=== PATIENT | female | born 1970 | race Caucasian/White ===

== ENCOUNTER 2017-08-13 23:39 | Emergency (ER) | payer OTHER ==
[~2017-08-13] VITALS: Ht 165.1 cm; Wt 56.7 kg
[~2017-08-13 23:39] MED LIST: BUSP10 PO; CYCL10 PO; DICL25ER PO; FLUO10 PO; GABA600 PO; HYDROCORTISON28.4 GM; Naprosyn500 MG PO; Norco 7.5-3251 EACH PO; QUET100 PO; QUET300 PO; SOMA350 MG PO; TRAM50 PO; Ultram50 MG PO
[2017-08-14] MEDS ORDERED: CIPHYDOTSU BOTHEARS (00:03)
[2017-08-14] MEDS ORDERED: Neurontin 300300 MG PO (00:03)
[2017-08-14] MEDS ORDERED: Bactrim 400-801 EACH PO (00:03)
== END 2017-08-14 00:22 | disposition home or self-care (01) ==
LOC: ER 23:39
DX: H60.11 Cellulitis of right external ear (principal); F17.200 Nicotine dependence, unspecified, uncomplicated
CPT/HCPCS: 99283

== ENCOUNTER 2018-01-09 16:00 | Outpatient (CLI) | payer OTHER ==
[~2018-01-09 16:00] MED LIST changes: +Bactrim 400-801 EACH PO; +CIPHYDOTSU BOTHEARS; +Neurontin 300300 MG PO
[2018-01-09 17:11] LABS: U Amphetamine Screen Not Detected; U Barbituate Screen Not Detected; U Benzodiazapine Screen Not Detected; U Buprenorphine Screen Not Detected; U Cannabinoids Screen DETECTED; U Cocaine Screen Not Detected; U Methadone Screen Not Detected; U Methamphetamine Screen Not Detected; U Opiates Screen Not Detected; U Oxycodone Screen Not Detected; U Phencyclidine Screen Not Detected; U Propoxyphene Screen Not Detected
== END 2018-01-09 23:59 | disposition home or self-care (01) ==
LOC: LAB SHORT 16:00 → LAB 16:00 → LAB SHORT 23:59
PROVIDERS: Psychiatry & Neurology Psychiatry
DX: Z79.899 Other long term (current) drug therapy (principal)

== ENCOUNTER → 2018-11-19 | Outpatient (CLI) | payer OTHER ==
[~2018-11-19] MED LIST changes: +ALBU90OI INH; +AMPDEX15CR PO; +Advil Migraine200 MG PO; +Aspirin EC81 MG PO; +BIOTENE1000 ML SS; +CELE100 PO; +Percocet 5-3251 EACH PO; +QUETIAPINE FUM400 MG PO
[2018-11-19 11:33] LABS: U Amphetamine Screen Not Detected; U Barbituate Screen Not Detected; U Benzodiazapine Screen DETECTED; U Buprenorphine Screen Not Detected; U Cannabinoids Screen DETECTED; U Cocaine Screen Not Detected; U Methadone Screen Not Detected; U Methamphetamine Screen Not Detected; U Opiates Screen Not Detected; U Oxycodone Screen Not Detected; U Phencyclidine Screen Not Detected; U Propoxyphene Screen Not Detected
[2018-11-23 07:08] LABS: TRICYCLIC ANTIDEP Negative ng/mL (Cutoff=100)
== END | disposition home or self-care (01) ==
LOC: LAB SHORT 11:09 → LAB 11:09
PROVIDERS: Psychiatry & Neurology Psychiatry
DX: Z51.81 Encounter for therapeutic drug level monitoring (principal); Z79.899 Other long term (current) drug therapy
CPT/HCPCS: 80369; G0480; G0481

== ENCOUNTER 2018-11-29 07:51 | Day surgery (SDC) | payer OTHER ==
[~2018-11-29] VITALS: Ht 162.6 cm; Wt 65.3 kg
[~2018-11-29 07:51] MED LIST changes: -Aspirin EC81 MG PO; -CELE100 PO; -Percocet 5-3251 EACH PO; -QUETIAPINE FUM400 MG PO
--- NOTE | 2018-11-29 08:36 | NUR ---
Ambulatory in Day Surgery History, Chart, Medications and Allergies reviewed before start of procedure.Patient confirms NPO status and agrees with scheduled surgery. Patient reports completing Chlorhexadine shower X2 prior to admission to hospital.Surgical site prepped with 2% Chlorhexidine cloth wipe.
--- NOTE | 2018-11-29 13:09 | NUR ---
PT ARRIVED TO THE ROOM ALERT AND ORIENTED. RATES PAIN AT 9/10. WILL CONTINUE TO MONITOR.
--- NOTE | 2018-11-29 18:07 | NUR ---
PT BECAME NAUSEATED AND VOMITED AFTER EATING LUNCH. PT WAS PROVIDED WITH DINNER TRAY AND EDUCATED TO EAT SLOWLY AND ALLOW HER STOMACH TO ADJUST TO HAVING FOOD POST-OP. PT REPORTED SHE UNDERSTOOD, AND SHE WOULD EAT MORE SLOWLY.
--- NOTE | 2018-11-29 18:08 | NUR ---
SHIFT SUMMARY PAIN HAS BEEN MANAGED WITH PO PAIN MEDICATION POST-OP. PT HAS ALSO BEEN ENCOURAGED TO USE DISTRACTION TO HELP MANAGE PAIN; SHE HAS RESPONDED WELL. SHE WAS ALSO EDUCATED TO EXPECT PAIN. THIS RN WORKED WITH PT TO SET A PAIN MANAGEMENT GOAL OF 7/10, SINCE THIS IS THE LEVEL OF COMFORT THE PT ACHIEVES AT HOME. PT EDUCATED THAT PAIN IS A REALISTIC EXPECTATION AFTER SURGERY. PT RESPONDED WELL TO EDUCATION. PT VOMITED X1 AFTER EATING LUNCH, PT DENIED NAUSEA AFTER VOMITING. PT WORKED WITH THERAPY TODAY AND WAS A 1 PERSON ASSIST. VSS. WILL MONITOR UNTIL REPORT TO ONCOMING RN.
[2018-11-29] MEDS ORDERED: QUETIAPINE FUM400 MG PO (21:12)
[2018-11-30 04:31] LABS: BASOPHILS ABSOLUTE AUTO 0.02 K/mm3 (0.00-0.23); BASOPHILS PERCENT AUTO 0 % (0-2); EOSINOPHILS ABSOLUTE AUTO 0.05 K/mm3 (0.00-0.68); EOSINOPHILS PERCENT AUTO 0 % (0-6); Hematocrit 34.2 % (33.0-51.0); Hemoglobin 11.3 g/dL (11.5-16.0); IMMATURE GRAN ABSOLUTE AUTO 0.05 K/mm3 (0.00-0.10); IMMATURE GRAN PERCENT AUTO 0 % (0-1); LYMPHOCYTES ABSOLUTE AUTO 3.03 K/mm3 (0.84-5.20); LYMPHOCYTES PERCENT AUTO 19 % (21-46); MONOCYTES PERCENT AUTO 11 % (4-13); Mean Corpuscular HGB 32.1 pg (26.0-34.0); Mean Corpuscular Volume 97 fL (80-100); Mean Platelet Volume 9.6 fL (9.1-12.4); NEUTROPHILS ABSOLUTE AUTO 10.82 K/mm3 (1.96-9.15); NEUTROPHILS PERCENT AUTO 69 % (41-73); Platelet Count 257 K/mm3 (150-400); RDW Coefficient Variation 13.2 % (11.7-14.2); RDW Standard Deviation 46.9 fL (35.1-46.3); Red Blood Cell Count 3.52 M/mm3 (3.80-5.20); White Blood Cell Count 15.67 K/mm3 (4.00-11.30)
[2018-11-30 04:52] LABS: Anion Gap 7 mmol/L (6-16); Blood Urea Nitrogen 15 mg/dL (8-24); Bun/Creatinine Ratio 21.5 (12.0-20.0); CO2, Blood 29 mmol/L (21-32); Calcium, Blood 8.5 mg/dL (8.5-10.1); Chloride, Blood 104 mmol/L (98-108); Glomerular Filtration Rate >60 (60-); Glucose, Blood 122 mg/dL (70-99); Magnesium, Blood 1.9 mg/dL (1.6-2.4); Sodium, Blood 140 mmol/L (136-145)
--- NOTE | 2018-11-30 06:33 | NUR ---
SHIFT SUMMARY HAS HAD A GOOD NIGHT, RESTED WELL WHILE LYING IN SEMI FOWLERS WITH EYES CLOSED. PAIN MANAGED PER EMAR. DENIES FURTHER NEEDS OR WANTS AT THIS TIME. SAFETY MEASURES IN PLACE. HAND OFF TO BE GIVEN TO ONCOMING SHIFT USING SBAR.
[2018-11-30] MEDS ORDERED: Aspirin EC81 MG PO (11:33)
[2018-11-30] MEDS ORDERED: Percocet 5-3251 EACH PO (11:34)
[2018-11-30] MEDS ORDERED: CELE100 PO (11:35)
--- NOTE | 2018-11-30 12:14 | NUR ---
1155 DISCHARGED TO HOME
== END 2018-11-30 12:02 | disposition home or self-care (01) ==
LOC: ORSCMMR 07:51 → SURS 12:48 → ORSCMMR 13:00 → ORD 13:00 → ORSCMMR 11-30 12:02
PROVIDERS: Orthopaedic Surgery
PROC: 0SRD06A Replacement of Left Knee Joint with Oxidized Zirconium on Polyethylene Synthetic Substitute, Uncemented, Open Approach (ICD-10-PCS; principal; 2018-11-29 10:30)
DX: M17.12 Unilateral primary osteoarthritis, left knee (principal); F30.9 Manic episode, unspecified; F41.9 Anxiety disorder, unspecified; Z79.899 Other long term (current) drug therapy; Z87.891 Personal history of nicotine dependence
CPT/HCPCS: 36415; 73560-RT; 80048; 83735; 85025; 86850; 86900; 86901; 88300; 94640; 94760; 97110; 97116; 97162; 97530; C1776; J0171; J0690; J0735; J1885; J2250; J2405; J2795; J3010; J7120

== ENCOUNTER → 2019-04-01 | Outpatient (CLI) | payer OTHER ==
[~2019-04-01] MED LIST changes: +Aspirin EC81 MG PO; +CELE100 PO; +Percocet 5-3251 EACH PO; +QUETIAPINE FUM400 MG PO
[2019-04-01 19:29] LABS: U Amphetamine Screen DETECTED; U Barbituate Screen Not Detected; U Benzodiazapine Screen Not Detected; U Cannabinoids Screen DETECTED; U Cocaine Screen Not Detected; U Methadone Screen Not Detected; U Methamphetamine Screen Not Detected; U Opiates Screen Not Detected; U Phencyclidine Screen Not Detected
[2019-04-01 19:30] LABS: U Buprenorphine Screen Not Detected; U Oxycodone Screen Not Detected; U Propoxyphene Screen Not Detected
== END | disposition home or self-care (01) ==
LOC: LAB SHORT 14:00 → LAB 14:00
PROVIDERS: Registered Nurse Psychiatric/Mental Health
DX: Z51.81 Encounter for therapeutic drug level monitoring (principal); Z79.899 Other long term (current) drug therapy

== ENCOUNTER 2019-08-01 09:26 | Inpatient (IN) | payer OTHER ==
[~2019-08-01] VITALS: Ht 165.1 cm; Wt 67.7 kg
[~2019-08-01 09:26] MED LIST changes: -AMPDEX15CR PO; +Amphetamine Sal15 MG PO; -BUSP10 PO; +Buspirone HCl30 MG PO; -FLUO10 PO; +GABA400 PO; -GABA600 PO; +Prozac20 MG PO
[2019-08-01 10:10] LABS: BASOPHILS ABSOLUTE AUTO 0.07 K/mm3 (0.00-0.23); BASOPHILS PERCENT AUTO 0 % (0-2); EOSINOPHILS ABSOLUTE AUTO 0.01 K/mm3 (0.00-0.68); EOSINOPHILS PERCENT AUTO 0 % (0-6); Hematocrit 44.6 % (33.0-51.0); Hemoglobin 14.9 g/dL (11.5-16.0); IMMATURE GRAN ABSOLUTE AUTO 0.14 K/mm3 (0.00-0.10); IMMATURE GRAN PERCENT AUTO 1 % (0-1); LYMPHOCYTES ABSOLUTE AUTO 1.73 K/mm3 (0.84-5.20); LYMPHOCYTES PERCENT AUTO 7 % (21-46); MONOCYTES ABSOLUTE AUTO 1.56 K/mm3 (0.16-1.47); MONOCYTES PERCENT AUTO 7 % (4-13); Mean Corpuscular HGB 31.5 pg (26.0-34.0); Mean Corpuscular HGB Conc 33.4 g/dL (31.5-36.5); Mean Corpuscular Volume 94 fL (80-100); Mean Platelet Volume 9.9 fL (9.1-12.4); NEUTROPHILS ABSOLUTE AUTO 19.86 K/mm3 (1.96-9.15); NEUTROPHILS PERCENT AUTO 85 % (41-73); Platelet Count 333 K/mm3 (150-400); RDW Coefficient Variation 13.1 % (11.7-14.2); RDW Standard Deviation 45.3 fL (35.1-46.3); Red Blood Cell Count 4.73 M/mm3 (3.80-5.20); White Blood Cell Count 23.37 K/mm3 (4.00-11.30)
[2019-08-01 10:27] LABS: Alanine Aminotransfer (ALT/SGP 24 U/L (12-78); Albumin, Blood 3.7 g/dL (3.4-5.0); Alk Phos 90 U/L (50-136); Anion Gap 5 mmol/L (6-16); Aspartate Aminotrans (AST/SGOT 18 U/L (12-37); Bilirubin, Total 0.3 mg/dL (0.1-1.0); Blood Urea Nitrogen 9 mg/dL (8-24); Bun/Creatinine Ratio 13.8 (12.0-20.0); CO2, Blood 29 mmol/L (21-32); Chloride, Blood 104 mmol/L (98-108); Creatinine, Blood 0.65 mg/dL (0.40-1.00); Globulin, Blood 3.7 g/dL (2.2-4.0); Glomerular Filtration Rate >60 (60-); Glucose, Blood 114 mg/dL (70-99); Potassium, Blood 3.6 mmol/L (3.5-5.5); Sodium, Blood 138 mmol/L (136-145); Total Protein, Blood 7.4 g/dL (6.4-8.2)
[2019-08-01 11:50] LABS: Source, Urine Clean Catch
[2019-08-01 11:53] LABS: Bilirubin, Urine Neg (Neg); Blood, Urine Neg (Neg); Glucose Qualitative, Urine Neg (Neg); Ketones, Urine Neg (Neg); Leukocyte Esterase, Urine Neg (Neg); Nitrite, Urine Neg (Neg); Protein, Urine Neg (Neg); Specific Gravity, Urine 1.015 (1.003-1.022); Urobilinogen, Urine NORM (Normal)
[2019-08-01 11:56] LABS: Appearance, Urine Clear (Clear); Color, Urine Yellow (P-Yellow)
[2019-08-01] MEDS ORDERED: TERB250 PO (13:34)
[2019-08-01] MEDS ORDERED: VITAMIN B-121000 MC2 PO (13:34)
[2019-08-01] MEDS ORDERED: TRIDERM28.4 GM TOP (13:38)
[2019-08-01] MEDS ORDERED: DICLOFENAC SOD100 G1 TOP (13:40)
[2019-08-02 04:15] LABS: BASOPHILS ABSOLUTE AUTO 0.03 K/mm3 (0.00-0.23); BASOPHILS PERCENT AUTO 0 % (0-2); EOSINOPHILS PERCENT AUTO 0 % (0-6); Hematocrit 35.1 % (33.0-51.0); Hemoglobin 11.6 g/dL (11.5-16.0); IMMATURE GRAN ABSOLUTE AUTO 0.12 K/mm3 (0.00-0.10); IMMATURE GRAN PERCENT AUTO 1 % (0-1); LYMPHOCYTES ABSOLUTE AUTO 1.57 K/mm3 (0.84-5.20); LYMPHOCYTES PERCENT AUTO 7 % (21-46); MONOCYTES PERCENT AUTO 6 % (4-13); Mean Corpuscular HGB 31.2 pg (26.0-34.0); Mean Corpuscular Volume 94 fL (80-100); Mean Platelet Volume 9.4 fL (9.1-12.4); NEUTROPHILS ABSOLUTE AUTO 19.07 K/mm3 (1.96-9.15); NEUTROPHILS PERCENT AUTO 87 % (41-73); Platelet Count 256 K/mm3 (150-400); RDW Coefficient Variation 13.6 % (11.7-14.2); RDW Standard Deviation 46.7 fL (35.1-46.3); Red Blood Cell Count 3.72 M/mm3 (3.80-5.20); White Blood Cell Count 21.99 K/mm3 (4.00-11.30)
[2019-08-02 04:35] LABS: Anion Gap 5 mmol/L (6-16); Blood Urea Nitrogen 11 mg/dL (8-24); Bun/Creatinine Ratio 14.1 (12.0-20.0); CO2, Blood 27 mmol/L (21-32); Calcium, Blood 7.9 mg/dL (8.5-10.1); Chloride, Blood 108 mmol/L (98-108); Creatinine, Blood 0.78 mg/dL (0.40-1.00); Glomerular Filtration Rate >60 (60-); Glucose, Blood 127 mg/dL (70-99); Potassium, Blood 3.5 mmol/L (3.5-5.5); Sodium, Blood 140 mmol/L (136-145)
[2019-08-03 04:11] LABS: BASOPHILS ABSOLUTE AUTO 0.06 K/mm3 (0.00-0.23); BASOPHILS PERCENT AUTO 1 % (0-2); EOSINOPHILS ABSOLUTE AUTO 0.17 K/mm3 (0.00-0.68); EOSINOPHILS PERCENT AUTO 2 % (0-6); Hematocrit 34.8 % (33.0-51.0); Hemoglobin 11.4 g/dL (11.5-16.0); IMMATURE GRAN ABSOLUTE AUTO 0.07 K/mm3 (0.00-0.10); IMMATURE GRAN PERCENT AUTO 1 % (0-1); LYMPHOCYTES ABSOLUTE AUTO 3.29 K/mm3 (0.84-5.20); LYMPHOCYTES PERCENT AUTO 32 % (21-46); MONOCYTES ABSOLUTE AUTO 0.97 K/mm3 (0.16-1.47); MONOCYTES PERCENT AUTO 9 % (4-13); Mean Corpuscular HGB 31.4 pg (26.0-34.0); Mean Corpuscular HGB Conc 32.8 g/dL (31.5-36.5); Mean Corpuscular Volume 96 fL (80-100); Mean Platelet Volume 9.4 fL (9.1-12.4); NEUTROPHILS ABSOLUTE AUTO 5.88 K/mm3 (1.96-9.15); NEUTROPHILS PERCENT AUTO 56 % (41-73); Platelet Count 256 K/mm3 (150-400); RDW Standard Deviation 49.7 fL (35.1-46.3); Red Blood Cell Count 3.63 M/mm3 (3.80-5.20); White Blood Cell Count 10.44 K/mm3 (4.00-11.30)
[2019-08-03] MEDS ORDERED: AMOCLA875 PO (12:47)
[2019-08-03] MEDS ORDERED: Norco 5-325 Ta1 EACH PO (12:48)
[2019-08-03] MEDS ORDERED: HYDR1TAB94 PO (12:57)
== END 2019-08-03 13:19 | disposition home or self-care (01) | DRG 343 ==
LOC: ER 09:26 → SURS 09:27 → ER 12:58 → SURS 14:54
PROVIDERS: Physician Assistant; ADMIT Surgery
PROC: 0DTJ4ZZ Resection of Appendix, Percutaneous Endoscopic Approach (ICD-10-PCS; principal; 2019-08-01 14:00)
DX: K35.30 Acute appendicitis with localized peritonitis, without perforation or gangrene (principal); J44.9 Chronic obstructive pulmonary disease, unspecified; K21.9 Gastro-esophageal reflux disease without esophagitis; F31.9 Bipolar disorder, unspecified; M54.5 Low back pain; G89.29 Other chronic pain; Z87.891 Personal history of nicotine dependence
CPT/HCPCS: 36415; 74177; 80048; 80053; 81003; 83690; 85025; 96361; 96374-59; 99285-25; A9270-GY; J1100; J1170; J1885; J2250; J2370; J2405; J2543; J2550; J2704; J3010; J7030; J7050; J7120; Q9967

== ENCOUNTER 2019-09-27 15:29 | Emergency (ER) | payer OTHER ==
[~2019-09-27] VITALS: Ht 165.1 cm; Wt 68.0 kg
[~2019-09-27 15:29] MED LIST changes: +AMOCLA875 PO; +DICLOFENAC SOD100 G1 TOP; +HYDR1TAB94 PO; +Norco 5-325 Ta1 EACH PO; +TERB250 PO; +TRIDERM28.4 GM TOP; +VITAMIN B-121000 MC2 PO
== END 2019-09-27 16:42 | disposition home or self-care (01) ==
LOC: ER 15:29
DX: R07.81 Pleurodynia (principal); F31.9 Bipolar disorder, unspecified; F17.210 Nicotine dependence, cigarettes, uncomplicated; Z79.899 Other long term (current) drug therapy; Z88.8 Allergy status to other drugs, medicaments and biological substances
CPT/HCPCS: 71045; 99283-25

== ENCOUNTER → 2019-12-27 | Outpatient (CLI) | payer OTHER ==
[2019-12-31 05:10] LABS: COTININE Negative ng/mL (Cutoff=300)
== END | disposition home or self-care (01) ==
LOC: LAB 08:07 → LAB SHORT 08:07 → LAB FUT 12-15 11:35 → EDSTATUS 12-15 11:35
PROVIDERS: Orthopaedic Surgery
DX: Z01.812 Encounter for preprocedural laboratory examination (principal); M17.11 Unilateral primary osteoarthritis, right knee

== ENCOUNTER → 2020-01-15 | Outpatient (CLI) | payer OTHER ==
[~2020-01-15] MED LIST changes: +ASPIR 8181 M1 PO; +BIOTENE DRY MOUTH SS; +VITAMIN D PO
[2020-01-17 08:26] LABS: Candida species (DNA Probe) Negative (NEGATIVE); G. vaginalis (DNA Probe) Negative (NEGATIVE); T. vaginalis (DNA Probe) Negative (NEGATIVE)
[2020-01-21 15:10] LABS: HPV 16 Negative (Negative); HPV 18 Negative (Negative); HPV OTHER HR TYPES Negative (Negative)
== END | disposition home or self-care (01) ==
LOC: LAB 19:45 → LAB SHORT 19:45
PROVIDERS: Family Medicine
DX: Z01.419 Encounter for gynecological examination (general) (routine) without abnormal findings (principal)
CPT/HCPCS: 87480; 87510; 87624; 87660; G0123

== ENCOUNTER 2020-01-28 06:41 | Day surgery (SDC) | payer OTHER ==
[~2020-01-28] VITALS: Ht 165.1 cm; Wt 69.6 kg
[~2020-01-28 06:41] MED LIST changes: -ASPIR 8181 M1 PO
--- NOTE | 2020-01-28 07:57 | NUR ---
Ambulatory in Day Surgery History, Chart, Medications and Allergies reviewed before start of procedure. Lungs clear T/O to Auscultation. Pre-Op teaching done. Pt verbalizes understanding.
--- NOTE | 2020-01-28 13:48 | NUR ---
PT ARRIVED TO THE ROOM AT 1320. SHE ARRIVED ALERT AND ORIENTED BUT CRYING R/T PAIN. IV DRESSING CHANGED IT WAS LIFTING UP. IV PAIN MEDICATION GIVEN, PT STILL REPORTS THROBBING PAIN TO HER R KNEE BUT APPEARS TO BE MORE RESTFUL AND IS ABLE TO FALL ASLEEP. PT WAS PLACED ON 2L O2 VIA NC AFTER DILAUDID WAS GIVEN R/T O2 SATURATION OF 89% WHILE SLEEPING. R KNEE DRESSING C/D/I. PT PROVIDED WITH CLEAR LIQUIDS AND EDUCATED TO SIP LONG IT DID NOT CAUSE NAUSEA. WILL CONTINUE TO MONITOR.
--- NOTE | 2020-01-28 19:07 | NUR ---
SHIFT SUMMARY POD0 FOR R TKA, A0X4. VSS. PT REPORTS PAIN LEVEL AT 7/10 ON R KNEE. PT APPEARED EASILY DISTRACTS FROM PAIN BY USING HER PHONE AND TALKING TO STAFF. PT DENIES NUMBNESS, TINGLING SENSATION, DIZZINESS, CHEST PAIN AND NO SOB. R KNEE WRAPPED WITH YOGESH WRAP, CDI. PT TOLERATING PO INTAKE DENIES NAUSEA AND VOMITING. PT REPORTING PASSING FLATUS BUT DENIES BM. PT MINIMAL, 1 PRSON ASSIST. SHE WAS ABLE TO AMBULATE BED TO BATHROOM. PT DECLINES THERAPY BUT WAS ABLE TO SIT TO CHAIR FOR DINNER.
[2020-01-29 04:23] LABS: BASOPHILS ABSOLUTE AUTO 0.02 K/mm3 (0.00-0.23); BASOPHILS PERCENT AUTO 0 % (0-2); EOSINOPHILS ABSOLUTE AUTO 0.03 K/mm3 (0.00-0.68); EOSINOPHILS PERCENT AUTO 0 % (0-6); Hematocrit 34.6 % (33.0-51.0); Hemoglobin 11.5 g/dL (11.5-16.0); IMMATURE GRAN ABSOLUTE AUTO 0.06 K/mm3 (0.00-0.10); IMMATURE GRAN PERCENT AUTO 0 % (0-1); LYMPHOCYTES ABSOLUTE AUTO 2.15 K/mm3 (0.84-5.20); LYMPHOCYTES PERCENT AUTO 15 % (21-46); MONOCYTES ABSOLUTE AUTO 1.26 K/mm3 (0.16-1.47); MONOCYTES PERCENT AUTO 9 % (4-13); Mean Corpuscular HGB 31.8 pg (26.0-34.0); Mean Corpuscular HGB Conc 33.2 g/dL (31.5-36.5); Mean Corpuscular Volume 96 fL (80-100); Mean Platelet Volume 9.7 fL (9.1-12.4); NEUTROPHILS ABSOLUTE AUTO 11.03 K/mm3 (1.96-9.15); NEUTROPHILS PERCENT AUTO 76 % (41-73); Platelet Count 252 K/mm3 (150-400); RDW Coefficient Variation 12.9 % (11.7-14.2); RDW Standard Deviation 45.9 fL (35.1-46.3); Red Blood Cell Count 3.62 M/mm3 (3.80-5.20); White Blood Cell Count 14.55 K/mm3 (4.00-11.30)
[2020-01-29 04:39] LABS: Anion Gap 5 mmol/L (6-16); Blood Urea Nitrogen 13 mg/dL (8-24); Bun/Creatinine Ratio 16.2 (12.0-20.0); CO2, Blood 27 mmol/L (21-32); Calcium, Blood 8.3 mg/dL (8.5-10.1); Chloride, Blood 108 mmol/L (98-108); Glomerular Filtration Rate >60 (60-); Glucose, Blood 122 mg/dL (70-99); Potassium, Blood 3.9 mmol/L (3.5-5.5); Sodium, Blood 140 mmol/L (136-145)
--- NOTE | 2020-01-29 05:42 | NUR ---
SHIFT SUMMARY LYING ON LEFT SIDE FACING WINDOW WITH EYES CLOSED. HAS RESTED WELL OFF AND ON THROUGHOUT SHIFT. AMBULATED IN ROOM WITH STANDBY ASSISTANCE, TOLERATED WELL. POLAR AARON TO RIGHT KNEE WITH ICE IN BUCKET. AQUACEL C/D/I. DENIES PAIN, DISCOMFORT, OR FURTHER NEEDS. SAFETY MEASURES IN PLACE. WILL CONTINUE TO MONITOR AND GIVE HAND OFF TO ONCOMING SHIFT USING SBAR.
--- NOTE | 2020-01-29 09:02 | NUR ---
PT RECENTLY REPORTED TO BE NEGATIVE FOR DVT. NOTIFIED.
--- NOTE | 2020-01-29 09:11 | NUR ---
THERAPY IN ROOM.
--- NOTE | 2020-01-29 11:59 | NUR ---
PT RECENTLY HAD SNACK.
--- NOTE | 2020-01-29 13:18 | NUR ---
THERAPY HERE WORKING WITH PT, FAMILY PRESENT.
[2020-01-29] MEDS ORDERED: ASPIR 8181 M1 PO (13:26)
[2020-01-29] MEDS ORDERED: Percocet 5-3251 EACH PO (13:27)
--- NOTE | 2020-01-29 14:00 | NUR ---
DISCHARGE: PT EATING AND DRINKING, VOIDING. PT BEEN CLEARED BY THERAPY TO GO HOME. PT REPORTS FEELING READY TO GO HOME. FAMILY HERE WHEN THERAPY WAS THIS AFTERNOON. PT/FAMILY REPORTS UNDERSTANDING OF DISCHARGE INSTRUCTIONS INCLUDING ICE MACHINE. PT SENT WITH BELONGINGS AND PAPERWORK INCLUDING SCRIPTS. PT REPORTS HAVING WALKER AT HOME. FAMILY HERE TO GIVE PT RIDE HOME.
== END 2020-01-29 14:11 | disposition home or self-care (01) ==
LOC: ORSCMMR 06:41 → ORD 08:15 → SURS 13:15 → ORSCMMR 01-29 14:11
PROVIDERS: Orthopaedic Surgery
PROC: 8E0Y0CZ Robotic Assisted Procedure of Lower Extremity, Open Approach (ICD-10-PCS; principal; 2020-01-28 08:15)
PROC: 0SRC0JA Replacement of Right Knee Joint with Synthetic Substitute, Uncemented, Open Approach (ICD-10-PCS; principal; 2020-01-28 08:15)
DX: M17.11 Unilateral primary osteoarthritis, right knee (principal); J44.9 Chronic obstructive pulmonary disease, unspecified; Z87.891 Personal history of nicotine dependence; F31.9 Bipolar disorder, unspecified; Z79.899 Other long term (current) drug therapy
CPT/HCPCS: 27447; S2900; 36415; 73560-RT; 80048; 85025; 88300; 93971; 97110; 97116; 97162; A9270; C1776; J0171; J0690; J0735; J1100; J1170; J1885; J2250; J2405; J2704; J2795; J3010; J7120

== ENCOUNTER 2020-03-17 09:43 | Day surgery (SDC) | payer OTHER ==
[~2020-03-17] VITALS: Ht 165.1 cm; Wt 77.3 kg
[~2020-03-17 09:43] MED LIST changes: +ASPIR 8181 M1 PO
--- NOTE | 2020-03-17 11:03 | NUR ---
03/17/20 1103 Bev Haddad History, Chart, Medications and Allergies reviewed before start of procedure. Patient confirms NPO status and agrees with scheduled surgery. PATIENT DETERMINED TO BE ASA APPROPRIATE FOR PROPOFOL SEDATION PRIOR TO START OF PROCEDURE BY DR. CARDENAS. 3-LEAD EKG REVIEWED WITH PHYSICIAN PRIOR TO START OF PROCEDURE. MONITOR INTACT WITH CONTINUOUS PULSE OXIMETRY AND INTERMITTENT BP.
--- NOTE | 2020-03-17 12:06 | NUR ---
DENTURES RETURNED TO PT, WHO PLACES THEM IN HER MOUTH. GLASSES ALSO GIVEN. PROVIDED WITH COFFEE, JUICE AND CRACKERS REQUESTED. EATING WITHOUT DIFFICULTY.
--- NOTE | 2020-03-17 12:37 | NUR ---
Patient up to Ambulate independently. Gait steady. Discharge instructions reviewed with patient. Patient verbalizes understanding. Copy given to patient to take home. Patient States Post-Procedure ride home has been arranged. Discharged via wheelchair to private car for ride home.
== END 2020-03-17 22:59 | disposition home or self-care (01) ==
LOC: ORSCMMR 09:43 → ORD 10:30 → ORSCMMR 10:30
PROVIDERS: Internal Medicine Gastroenterology
PROC: 0DBN8ZX Excision of Sigmoid Colon, Via Natural or Artificial Opening Endoscopic, Diagnostic (ICD-10-PCS; principal; 2020-03-17 10:30)
PROC: 0DB68ZX Excision of Stomach, Via Natural or Artificial Opening Endoscopic, Diagnostic (ICD-10-PCS; principal; 2020-03-17 10:30)
DX: R10.13 Epigastric pain (principal); K29.70 Gastritis, unspecified, without bleeding; Z12.11 Encounter for screening for malignant neoplasm of colon; K63.5 Polyp of colon; F31.9 Bipolar disorder, unspecified; Z79.899 Other long term (current) drug therapy
CPT/HCPCS: 87081; 88305; 88342; J2250; J2704; J7120